=== PATIENT | male | born 1970 | race Caucasian/White ===

== ENCOUNTER → 2025-08-19 10:01 | Outpatient (CLI) | payer MEDICAID, SELFPAY ==
--- NOTE | 2025-08-19 11:44 | DI.RAD.S_ITS ---
PROCEDURE: XR CERVICAL SPINE 2V OR 3V INDICATIONS: hand pain/c-spine pain TECHNIQUE: 3 view(s) of the cervical spine were acquired. COMPARISON: None. FINDINGS: Bones: No fractures or dislocations to the C7 level. The lateral masses of C1 appear intact on the odontoid view. No suspicious bony lesions. Multilevel degenerative disc disease. Soft tissues: No prevertebral soft tissue swelling. IMPRESSION: Degenerative changes Dictated by: Ganesh Martinez M.D. on 08/19/2025 at 17:12 Approved by: Ganesh Martinez M.D. on 08/19/2025 at 17:13
--- NOTE | 2025-08-19 11:44 | DI.RAD.S_ITS ---
PROCEDURE: XR HAND LT 2V INDICATIONS: hand pain/c-spine pain TECHNIQUE: 2 views of the hand(s) acquired. COMPARISON: None. FINDINGS: Bones: No fractures or dislocations. Carpal bones are normally aligned. No suspicious bony lesions. Joint spaces are maintained. No bone erosion. Soft tissues: No suspicious soft tissue calcifications. IMPRESSION: Negative examination Dictated by: Ganesh Martinez M.D. on 08/19/2025 at 17:13 Approved by: Ganesh Martinez M.D. on 08/19/2025 at 17:13
== END ==
PROVIDERS: Referring Provider Internal Medicine Cardiovascular Disease; Visit Provider Internal Medicine Cardiovascular Disease
DX: M25.549 Pain in joints of unspecified hand (principal); M50.30 Other cervical disc degeneration, unspecified cervical region
CPT/HCPCS: 72040; 73120